=== PATIENT | female | born 1945 | race Caucasian/White ===

== ENCOUNTER → 2017-04-08 | Outpatient (CLI) | payer MEDICARE, BC ==
--- NOTE | 2017-04-08 23:29 | MR ---
EXAMINATION TYPE: MR hip LT wo con DATE OF EXAM: 04/08/2017 COMPARISON: Correlation outside hospital ([facility]) hip radiograph report dated 03/05/2017 which comm ents on periosteal reaction along the lateral cortical surface of the proximal left femur at some mus cular attachment sites. HISTORY: 71-year-old female left hip pain, OA left hip TECHNIQUE: Multiplanar, multisequence images of the left hip were obtained without IV contrast. FINDINGS: A large multilocular ganglion cyst with extends from 12:00 back around to approximately 4:00 measurin g up to 4.3 cm AP by 1.8 cm craniocaudal by 1.6 cm wide. Similar but smaller change at the posterior superior right hepatic measuring 2.3 x 1.2 cm. Mild degenerative joint space narrowing of both hips. Some focal patchy signal in the superior left a cetabulum likely degenerative and reactive. No evidence for hip fracture or AVN. Mild insertional gluteal tendinosis on both sides. The rectus femoris and hamstrings origins as well as the iliopsoas insertions appears satisfactory. Symmetric course, caliber, and signal intensity of the sciatic nerves. The SI joints and sacrum appear intact. No significant hip joint effusion on either side. There is sigmoid diverticulosis. Degenerative changes lower lumbar spine. IMPRESSION: 1. Mild bilateral hip osteoarthrosis, left greater than right, with a large 4.3 cm multilocular paral abral cyst on the left extending from 12:00 back to 4:00 and a smaller paralabral cyst measuring 2.2 cm on the right. 2. No evidence for hip fracture or AVN. No suspicious bone marrow replacement. 3. Sigmoid diverticulosis.
== END | disposition home or self-care (01) ==
LOC: RADMRIMAIN 11:52
PROVIDERS: ATTEND Physician Assistant
DX: M16.0 Bilateral primary osteoarthritis of hip (principal); M24.851 Other specific joint derangements of right hip, not elsewhere classified; M24.852 Other specific joint derangements of left hip, not elsewhere classified

== ENCOUNTER → 2017-05-08 | Outpatient (CLI) | payer MEDICARE, BC ==
--- NOTE | 2017-05-11 12:00 | MM ---
Reason for exam: screening (asymptomatic). Last mammogram was performed 2 years and 9 months ago. History: Patient is postmenopausal and is nulliparous. Family history of breast cancer in cousin and breast cancer in 2 aunts. Physical Findings: A clinical breast exam by your physician is recommended on an annual basis and results should be correlated with mammographic findings. MG 3D Screening Mammo W/Cad Bilateral CC and MLO view(s) were taken. Prior study comparison: August 22, 2014, bilateral MG screening mammo w CAD. August 03, 2013, bilateral MG screening mammo w CAD. The breast tissue is heterogeneously dense. This may lower the sensitivity of mammography. Finding: There are typically benign diffuse/scattered calcifications in the left breast. No suspicious abnormality. No significant changes in finding since August 22, 2014 and August 03, 2013. ASSESSMENT: Benign, BI-RAD 2 RECOMMENDATION: Routine screening mammogram of both breasts in 1 year.
== END | disposition home or self-care (01) ==
LOC: RADMAMWWP 13:28
PROVIDERS: ATTEND Family Medicine
DX: Z12.31 Encounter for screening mammogram for malignant neoplasm of breast (principal); N64.4 Mastodynia; R07.9 Chest pain, unspecified
CPT/HCPCS: 77063; 77067

== ENCOUNTER → 2018-05-12 | Outpatient (CLI) | payer MEDICARE, BC ==
[2018-05-12 15:18] LABS: HCT 39.6 % (34.0-46.0); HGB 13.1 gm/dL (11.4-16.0); MCH 30.5 pg (25.0-35.0); MCHC 33.1 g/dL (31.0-37.0); MCV 92.2 fL (80.0-100.0); Mean Platelet Volume 6.2; Platelet Count 304 k/uL (150-450); RDW 13.4 % (11.5-15.5)
--- NOTE | 2018-05-12 15:23 | US ---
EXAMINATION TYPE: US thyroid st tissue head/neck DATE OF EXAM: 05/12/2018 COMPARISON: Thyroid ultrasound March 04, 2017 CLINICAL HISTORY: E04.2 Nontoxic multinodular goiter. f/u exam, not on meds GLAND SIZE: Right Lobe: 5.4 x 1.6 x 2.0 cm Overall Parenchyma: heterogenous Left Lobe: 5.7 x 1.9 x 2.7 cm Overall Parenchyma: heterogeneous Isthmus Thickness: 0.5 cm NODULES RIGHT: # of nodules measured on right: 1 1. 1.3 X 1.1 x 1.1 cm hypoechoic solid nodule at the lower pole with well-defined margins. This no dule is taller than wide and shows intranodular vascularity. Prior size: 1.3 x 1.3 x 1.1 cm LEFT: # of nodules measured on left: 1 1. 1.6 X 1.5 x 1.5 cm hypoechoic solid nodule at the mid pole with well-defined margins. This nodu le is taller than wide and shows intranodular vascularity. Prior size: 1.3 x 1.3 x 1.1 cm ISTHMUS: # of nodules measured in the isthmus: 0 Bilateral neck scanned, no evidence of lymphadenopathy. Markedly heterogeneous thyroid measuring upper limits of normal is redemonstrated with poorly defined nodules marked by technologist, accounting for technical differences no significant interval change. IMPRESSION: As above, no significant interval change accounting for technical differences
[2018-05-12 15:36] LABS: Albumin 4.2 g/dL (3.5-5.0); Calcium 9.8 mg/dL (8.4-10.2); Potassium 4.5 mmol/L (3.5-5.1); Total Bilirubin 0.4 mg/dL (0.2-1.3); Total Protein 7.2 g/dL (6.3-8.2)
[2018-05-12 15:48] LABS: T4, Free (Free Thyroxine) 1.07 ng/dL (0.78-2.19)
[2018-05-12 21:19] LABS: Hemoglobin A1C 7.3 % (4.0-6.0)
== END ==
LOC: RADUSWWP 14:22
PROVIDERS: ATTEND Internal Medicine Endocrinology, Diabetes & Metabolism
DX: E04.2 Nontoxic multinodular goiter (principal); G25.81 Restless legs syndrome; I83.813 Varicose veins of bilateral lower extremities with pain; R60.0 Localized edema; M79.604 Pain in right leg; M79.605 Pain in left leg; Z79.899 Other long term (current) drug therapy
CPT/HCPCS: 76536; 80053; 83036; 84439; 84443; 85027; 85379

== ENCOUNTER → 2019-05-11 | Outpatient (CLI) | payer MEDICARE, BC ==
[2019-05-11 15:01] LABS: T4, Free (Free Thyroxine) 1.24 ng/dL (0.78-2.19)
--- NOTE | 2019-05-11 15:27 | US ---
EXAMINATION TYPE: US thyroid st tissue head/neck DATE OF EXAM: 05/11/2019 COMPARISON: 03/04/2017 and 05/12/2018 CLINICAL HISTORY: E04.2 NONTOXIC MULTINODULAR GOITER. GLAND SIZE: Right Lobe:5.1 x 2.1 x 1.9 cm Overall Parenchyma: grossly heterogenous Left Lobe: 4.4 x 2.2 x 2.0 cm Overall Parenchyma: grossly heterogenous Isthmus Thickness: 0.3 cm NODULES RIGHT: # of nodules measured on right: 1. 1.0 X 0.7 x 0.8 cm isoechoic mixed nodule at the mid pole with well-defined margins. This nodul e is wider than tall and shows intranodular vascularity. Prior size: 1.3 x 1.1 x 1.1 cm LEFT: # of nodules measured on left: 1. 1.4 X 0.8 x 1.4 cm isoechoic solid nodule at the mid pole with well-defined margins. This nodul e is wider than tall and shows intranodular vascularity. Prior size: 1.6 x 1.5 x 1.5 cm ISTHMUS: # of nodules measured in the isthmus: 0 Bilateral neck scanned, no evidence of lymphadenopathy. IMPRESSION: Multinodular goiter. No interval growth of the bilateral thyroid nodules.
== END | disposition home or self-care (01) ==
LOC: RADUSWWP 13:48
PROVIDERS: ATTEND Internal Medicine Endocrinology, Diabetes & Metabolism
DX: E04.2 Nontoxic multinodular goiter (principal)
CPT/HCPCS: 36415; 76536; 84439; 84443

== ENCOUNTER → 2020-05-03 | Outpatient (CLI) | payer MEDICARE, BC ==
--- NOTE | 2020-05-03 08:52 | US ---
EXAMINATION TYPE: US thyroid st tissue head/neck DATE OF EXAM: 05/03/2020 COMPARISON: US 2016, 2018, 05/11/19 CLINICAL HISTORY: E04.2 Nontoxic multinodular goiter. GLAND SIZE: Right Lobe: 5.6 x 2.2 x 1.9 cm Overall Parenchyma: heterogenous Left Lobe: 4.6 x 2.3 x 1.8 cm Overall Parenchyma: heterogeneous Isthmus Thickness: 0.5 cm NODULES RIGHT: # of nodules measured on right: Multiple. Measured previously measured nodule. 1. 1.6 X 1.2 x 1.1 cm mixed cystic and solid, isoechoic nodule, which is wider than tall, with ill- defined margins, without echogenic foci. Prior size: 1.0 x 0.7 x 0.8 cm LEFT: # of nodules measured on left: 1 1. 1.7 X 1.5 x 1.4 cm solid or almost completely solid, isoechoic nodule, which is wider than tall, with ill-defined margins, without echogenic foci. Prior size: 1.4 x 0.8 x 1.4 cm Bilateral neck scanned, no evidence of lymphadenopathy. IMPRESSION: Enlarging thyroid nodules. I do recommend tissue diagnosis if this has not been performed in the past .
[2020-05-03 09:03] LABS: Basophils % (A) 1 %; Eosinophils # (A) 0.4 k/uL (0-0.7); Eosinophils % (A) 7 %; HCT 40.9 % (34.0-46.0); HGB 13.6 gm/dL (11.4-16.0); Lymphocytes # (A) 1.3 k/uL (1.0-4.8); Lymphocytes % (A) 25 %; MCH 31.3 pg (25.0-35.0); MCHC 33.1 g/dL (31.0-37.0); MCV 94.4 fL (80.0-100.0); Mean Platelet Volume 6.8; Monocytes # (A) 0.4 k/uL (0-1.0); Monocytes % (A) 8 %; Neutrophils # (A) 2.9 k/uL (1.3-7.7); Neutrophils % (A) 57 %; Platelet Count 209 k/uL (150-450); RBC 4.33 m/uL (3.80-5.40); RDW 12.6 % (11.5-15.5); WBC 5.1 k/uL (3.8-10.6)
[2020-05-03 09:12] LABS: Calcium 9.7 mg/dL (8.4-10.2)
[2020-05-03 09:19] LABS: Appearance,Urine Clear (Clear); Bilirubin,Urine Negative (Negative); Blood,Urine Negative (Negative); Color,Urine Yellow; Glucose,Urine (UA) Negative (Negative); Hyaline Casts,Urine 3 /lpf (0-2); Ketones,Urine Negative (Negative); Leukocyte Esterase,Urine Small (Negative); Mucus,Urine Rare /hpf; Nitrite,Urine Negative (Negative); Protein,Urine Negative (Negative); RBC,Urine <1 /hpf (0-5); Squamous Epithelial Cell,Urine <1 /hpf (0-4); Urobilinogen,Urine <2.0 mg/dL (<2.0); WBC,Urine 4 /hpf (0-5)
[2020-05-03 09:33] LABS: Creatinine,Urine Random 117.8 mg/dL; Protein/Creatinine Ratio,Urine 0.068
[2020-05-03 18:06] LABS: % Iron Saturation 25.15 (12.00-45.00)
[2020-05-03 18:15] LABS: Ferritin 72.1 ng/mL (10.0-291.0)
== END | disposition home or self-care (01) ==
LOC: RADUSWWP 08:14
PROVIDERS: ATTEND Internal Medicine Endocrinology, Diabetes & Metabolism
DX: E04.2 Nontoxic multinodular goiter (principal); N18.30 Chronic kidney disease, stage 3 unspecified; N39.0 Urinary tract infection, site not specified; D64.9 Anemia, unspecified; R80.9 Proteinuria, unspecified
CPT/HCPCS: 76536; 80048; 81001; 82570; 82728; 83540; 83550; 84156; 85025

== ENCOUNTER 2023-01-21 15:44 | Emergency (ER) | payer MEDICARE, BC ==
[2023-01-21 16:02] VITALS: BP 170/93; PULSE 68; RESP 18; TEMP 97.2
--- NOTE | 2023-01-21 16:08 | ED ---
Fall HPI - General Chief Complaint: Fall Stated Complaint: Fall Time Seen by Provider: 01/21/23 16:01 Source: patient, EMS, RN notes reviewed Mode of arrival: EMS - History of Present Illness Initial Comments: Patient is 77-year-old female presented ER via EMS with chief complaint of a fall . Patient states she was walking out of a restaurant and tripped over a rug landing on her face. Patient denies loss of consciousness or blood thinner use. She does admit to getting a blood nose after the fall. Patient states the only thing that is hurting her right now is her right forehead. Patient denies any nausea, vomiting or other injuries. - Related Data Allergies Allergy/AdvReac Type Severity Reaction Status Date / Time fentanyl AdvReac Unknown Verified 01/21/23 15:53 Review of Systems ROS Statement: Those systems with pertinent positive or pertinent negative responses have been documented in the HPI. ROS Other: All systems not noted in ROS Statement are negative. Past Medical History Past Medical History: Fibromyalgia, Hypertension Additional Past Medical History / Comment(s): Stage 3 Renal Failure, Pacemaker, Diabetes History of Any Multi-Drug Resistant Organisms: None Reported Past Surgical History: Heart Catheterization With Stent, Orthopedic Surgery Past Psychological History: No Psychological Hx Reported Smoking Status: Never smoker Past Alcohol Use History: Rare Past Drug Use History: None Reported General Exam Limitations: no limitations General appearance: alert, in no apparent distress Head exam: Present: other (right forhead hematoma/abrasion noted) Eye exam: Present: normal appearance, PERRL, EOMI. Absent: scleral icterus, conjunctival injection, periorbital swelling Pupils: Present: normal accommodation ENT exam: Present: normal exam, mucous membranes moist Respiratory exam: Present: normal lung sounds bilaterally. Absent: respiratory distress, wheezes, rales, rhonchi, stridor Cardiovascular Exam: Present: regular rate, normal rhythm, normal heart sounds. Absent: systolic murmur, diastolic murmur, rubs, gallop, clicks Neurological exam: Present: alert, oriented X3, CN II-XII intact Psychiatric exam: Present: normal affect, normal mood Skin exam: Present: warm, dry, intact, normal color. Absent: rash Course Vital Signs 01/21/23 01/21/23 15:46 17:13 Temperature 97.2 F L Pulse Rate 68 Respiratory 18 18 Rate Blood Pressure 170/93 O2 Sat by Pulse 98 Oximetry Medical Decision Making - Medical Decision Making Was pt. sent in by a medical professional or institution (JANE Chowdhury, [employer] SUPER[employer], urgent care, hospital, or retirement...) When possible be specific @ -No Did you speak to anyone other than the patient for history (EMS, parent, family, police, friend...)? What history was obtained from this source @ -No Did you review nursing and triage notes (agree or disagree)? Why? @ -I reviewed and agree with nursing and triage notes Were old charts reviewed (outside hosp., previous admission, EMS record, old EKG, old radiological studies, urgent care reports/EKG's, retirement records)? Report findings @ -No old charts were reviewed Differential Diagnosis (chest pain, altered mental status, abdominal pain women, abdominal pain men, vaginal bleeding, weakness, fever, dyspnea, syncope, headache, dizziness, GI bleed, back pain, seizure, CVA, palpatations, mental health, musculoskeletal)? @ -Scalp hematoma, laceration, abrasion, intracranial hemorrhage/mass effect, cervical vertebral fracture, dislocation. EKG interpreted by me (3pts min.). @ -None X-rays interpreted by me (1pt min.). @ -None done CT interpreted by me (1pt min.). @ -CT brain C-spine showed no acute intracranial hemorrhage/mass effect. There is no cervical vertebral fractures or dislocations noted. U/S interpreted by me (1pt. min.). @ -None done What testing was considered but not performed or refused? (CT, X-rays, U/S, labs)? Why? @ -None What meds were considered but not given or refused? Why? @ -None Did you discuss the management of the patient with other professionals (p rofessionals i.e. JANE Chowdhury, [employer]PER[employer], lab, RT, psych nurse, social service agency director, customer marketing assistant, teacher, sales officer, social work case manager)? Give summary @ -No Was smoking cessation discussed for >3mins.? @ -No Was critical care preformed (if so, how long)? @ -No Were there social determinants of health that impacted care today? How? (Homelessness, low income, unemployed, alcoholism, drug addiction, transportation, low edu. Level, literacy, decrease access to med. care, longterm, rehab)? @ -No Was there de-escalation of care discussed even if they declined (Discuss DNR or withdrawal of care, Hospice)? DNR status @ -No What co-morbidities impacted this encounter? (DM, HTN, Smoking, COPD, CAD, Cancer, CVA, ARF, Chemo, Hep., AIDS, mental health diagnosis, sleep apnea, morbid obesity)? @ -None Was patient admitted / discharged? Hospital course, mention meds given and route, prescriptions, significant lab abnormalities, going to OR and other pertinent info. @ -Discharge. On examination patient had a right scalp hematoma. Computed tomography scan of brain and C-spine showed no acute intracranial hemorrhages/mass effect there is no acute fractures or dislocations of the cervical vertebrate. Return parameters were discussed with the patient. Patient was discharged in stable condition with follow-up to PCP. Patient expressed understanding and agreement care plan. Undiagnosed new problem with uncertain prognosis? @ -No Drug Therapy requiring intensive monitoring for toxicity (Heparin, Nitro, Insulin, Cardizem)? @ -No Were any procedures done? @ -No Diagnosis/symptom? @ -Scalp hematoma Acute, or Chronic, or Acute on Chronic? @ -Acute Uncomplicated (without systemic symptoms) or Complicated (systemic symptoms)? @ -Uncomplicated Side effects of treatment? @ -No Exacerbation, Progression, or Severe Exacerbation? @ -No Poses a threat to life or bodily function? How? (Chest pain, USA, MS, pneumonia, PE, COPD, DKA, ARF, appy, cholecystitis, CVA, Diverticulitis, Homicidal, Suicidal, threat to staff... and all critical care pts) @ -No - Radiology Data Radiology results: report reviewed, image reviewed Disposition Clinical Impression: Fall Disposition: HOME SELF-CARE Condition: Stable Instructions (If sedation given, give patient instructions): Fall Prevention for Older Adults (ED) Additional Instructions: Please return to the Emergency Department if symptoms worsen or any other concerns. Is patient prescribed a controlled substance at d/c from ED?: No Referrals: Momo Hernandez MD [Primary Care Provider] - 1-2 days Time of Disposition: 17:04
--- NOTE | 2023-01-21 16:51 | CT ---
EXAMINATION TYPE: CT brain cspine wo con CT DLP: 1421.5 mGycm, Automated exposure control for dose reduction was used. DATE OF EXAM: 01/21/2023 4:35 PM COMPARISON: None CLINICAL INDICATION:Female, 77 years old with history of pain; Fall, no LOC, no blood thinners, hemat horacio above RT eye. TECHNIQUE: Brain: Multiple axial CT images of the brain were obtained without IV contrast. Cspine: Axial CT images from the skull base to the inferior aspect of T2 we obtained without intraven ous contrast. Coronal and sagittal reformatted images were also reviewed. FINDINGS: Brain: Extra-axial spaces: No abnormal extra-axial fluid collections. Ventricular system: Dilatation in proportion to cerebral atrophy. Cerebral parenchyma: Cerebral atrophy. No acute intraparenchymal hemorrhage or mass effect. The rodriguez -white junction is well differentiated. Scattered hypoattenuating areas are seen within the white mat ter. Cerebellum: Unremarkable. Mass effect: No evidence of midline shift. Intracranial vasculature: unremarkable Soft tissues: Right frontal lobe scalp hematoma. Calvarium/osseous structures: No depressed skull fracture. Paranasal sinuses and mastoid air cells: Clear. Visualized orbits: Orbital contents are intact. Cervical spine: Fracture: None. Osseous structures: Multilevel degenerative disc disease changes with endplate spurring and disc oste ophyte complex's. Vertebral alignment: Grade 1 anterolisthesis of C4 on C5. Spinal canal/Neural Foramina: No evidence of significant spinal canal narrowing. No evidence for sign ificant neural foraminal stenosis. Neck soft tissues: Prevertebral soft tissues are within normal limits. Other: The airway is patent. The lung apices are clear. Opacifications in the nuchal ligament. IMPRESSION: 1. No acute intracranial process. Right frontal scalp edema and hematoma without evidence of fractur e. 2. Nonspecific white matter changes, likely secondary to chronic small vessel ischemic disease. 3. No evidence of cervical spine fracture. 4. Moderate to severe multilevel degenerative disc disease.
== END 2023-01-21 17:25 | disposition home or self-care (01) ==
LOC: EC 15:44
DX: S00.83XA Contusion of other part of head, initial encounter (principal); E11.22 Type 2 diabetes mellitus with diabetic chronic kidney disease; I12.9 Hypertensive chronic kidney disease with stage 1 through stage 4 chronic kidney disease, or unspecified chronic kidney disease; N18.30 Chronic kidney disease, stage 3 unspecified; Z88.5 Allergy status to narcotic agent; W01.0XXA Fall on same level from slipping, tripping and stumbling without subsequent striking against object, initial encounter; Y93.01 Activity, walking, marching and hiking
CPT/HCPCS: 70450; 72125; 99284